=== PATIENT | male | born 1995 | race African-American/Black ===

== ENCOUNTER 2017-10-19 15:47 | Emergency (ER) | payer SELFPAY ==
[2017-10-19] MEDS ORDERED: Lidocaine 1% w/Epinephrine 1:100K 30 ML VIAL ONE (17:06)
[2017-10-19] MEDS ORDERED: Triple Antibiotic Oint 1 GM Packet ONE (17:23)
== END 2017-10-19 17:30 | disposition home or self-care (01) ==
LOC: BURERS 15:47
DX: S61.411A Laceration without foreign body of right hand, initial encounter (principal); F17.210 Nicotine dependence, cigarettes, uncomplicated; W45.8XXA Other foreign body or object entering through skin, initial encounter
CPT/HCPCS: 12001; J2001

== ENCOUNTER 2017-10-29 16:48 | Emergency (ER) | payer SELFPAY | END 2017-10-29 17:06 | disposition home or self-care (01) | LOC: BURERS 16:48 | DX: S61.411D Laceration without foreign body of right hand, subsequent encounter (principal); F17.210 Nicotine dependence, cigarettes, uncomplicated ==

== ENCOUNTER 2018-12-26 21:58 | Emergency (ER) | payer SELFPAY ==
[2018-12-26] MEDS ORDERED: Lidocaine 2% PF 5 ML VIAL ONE (22:25)
== END 2018-12-26 22:39 | disposition home or self-care (01) ==
LOC: BURERS 21:58
DX: S61.212A Laceration without foreign body of right middle finger without damage to nail, initial encounter (principal); S61.214A Laceration without foreign body of right ring finger without damage to nail, initial encounter; S61.216A Laceration without foreign body of right little finger without damage to nail, initial encounter; F17.210 Nicotine dependence, cigarettes, uncomplicated; W25.XXXA Contact with sharp glass, initial encounter
CPT/HCPCS: 12002; J2001

== ENCOUNTER 2021-08-10 23:05 | Emergency (ER) | payer SELFPAY ==
[~2021-08-10 23:05] MED LIST: Dexamethasone 4 MG TAB ONE; Sulfameth/Trimethoprim DS 800-160mg TAB ONE
[2021-08-11 23:19] LABS: SARS-CoV-2 PCR by NAA Not Detected (NotDetected)
== END 2021-08-10 23:30 | disposition home or self-care (01) ==
LOC: BURERS 23:05
DX: J01.90 Acute sinusitis, unspecified (principal); Z20.822 Contact with and (suspected) exposure to COVID-19; F17.290 Nicotine dependence, other tobacco product, uncomplicated
CPT/HCPCS: 99283; J8540; U0003; U0005

== ENCOUNTER 2021-10-15 22:17 | Emergency (ER) | payer SELFPAY ==
[2021-10-15] MEDS ORDERED: Ondansetron ODT 4 MG TAB ONE (22:30)
[2021-10-16 17:04] LABS: SARS-CoV-2 PCR by NAA Not Detected (NotDetected)
== END 2021-10-15 22:43 | disposition home or self-care (01) ==
LOC: BURERS 22:17
DX: J02.9 Acute pharyngitis, unspecified (principal); F17.290 Nicotine dependence, other tobacco product, uncomplicated; Z20.822 Contact with and (suspected) exposure to COVID-19
CPT/HCPCS: 87804; 99283; Q0162; U0003; U0005

== ENCOUNTER 2021-11-10 18:27 | Emergency (ER) | payer SELFPAY ==
[2021-11-10] MEDS ORDERED: Haloperidol Lactate 5 MG/ML VIAL ONE (18:57)
== END 2021-11-10 19:06 | disposition home or self-care (01) ==
LOC: BURERS 18:27
DX: F20.9 Schizophrenia, unspecified (principal); F17.290 Nicotine dependence, other tobacco product, uncomplicated; Z79.899 Other long term (current) drug therapy
CPT/HCPCS: 96372; 99284; J1630

== ENCOUNTER 2021-12-21 20:03 | Emergency (ER) | payer SELFPAY ==
[2021-12-21] MEDS ORDERED: Acetaminophen 500 MG TAB ONE (20:37)
[2021-12-21] MEDS ORDERED: Ibuprofen 800 MG TAB ONE (20:59)
[2021-12-22 21:42] LABS: SARS-CoV-2 PCR by NAA DETECTED (NotDetected)
== END 2021-12-21 21:05 | disposition home or self-care (01) ==
LOC: BURERS 20:03
DX: U07.1 COVID-19 (principal); Z79.899 Other long term (current) drug therapy
CPT/HCPCS: 87804; 99283; U0003; U0005

== ENCOUNTER 2022-03-12 21:02 | Emergency (ER) | payer OTHER, SELFPAY ==
[2022-03-12] MEDS ORDERED: Ibuprofen 800 MG TAB ONE (21:35)
== END 2022-03-12 21:26 | disposition home or self-care (01) ==
LOC: BURERS 21:02
DX: J30.9 Allergic rhinitis, unspecified (principal); F17.290 Nicotine dependence, other tobacco product, uncomplicated
CPT/HCPCS: 87081; 87430; 87804; 99283

== ENCOUNTER 2022-04-05 19:38 | Emergency (ER) | payer SELFPAY ==
[2022-04-05] MEDS ORDERED: Ondansetron ODT 4 MG TAB ONE (20:06)
== END 2022-04-05 20:13 | disposition home or self-care (01) ==
LOC: BURERS 19:38
DX: R11.0 Nausea (principal)
CPT/HCPCS: 99283; Q0162

== ENCOUNTER 2022-08-14 22:00 | Emergency (ER) | payer SELFPAY ==
[2022-08-14] MEDS ORDERED: predniSONE 20 MG TAB ONE (22:57)
[2022-08-14] MEDS ORDERED: Ibuprofen 200 MG TAB ONE (22:57)
== END 2022-08-14 23:04 | disposition home or self-care (01) ==
LOC: BURERS 22:00
DX: M26.602 Left temporomandibular joint disorder, unspecified (principal)
CPT/HCPCS: 99283; J7512